=== PATIENT | female | born 2000 | race American Indian/Alaskan Native ===

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

== ENCOUNTER 2020-08-16 09:28 | Emergency (ER) | payer MEDICAID ==
[2020-08-16 10:35] VITALS: BP 118/71
--- NOTE | 2020-08-16 10:40 | Emergency Department Report ---
Upper Extremity - HPI Chief Complaint: Extremity Problem,Nontraumatic Stated Complaint: BROKEN LEFT THUMB NAIL Time Seen by Provider: 08/16/20 10:35 Upper Extremity: Left Thumb Occurred When: 1 Day (last night around 9pm) Mechanism: Other (Patient states that she and her sister were playing last night and and her sister accidentally struck the nail of her left thumb and caused the nail to lift) Severity: moderate, severe Symptoms: Yes Laceration or Abrasion, No Pain with Movement, No Deformity, No Limited Range of Movement, No Numbness, No Weakness, No Swelling, No Bruising/Ecchymosis Other History: Patient states that last night around 9 PM she was playing around with her sister when her sister accidentally struck the nail of her left thumb and close the nail to left. She currently has an acrylic nail extension on that left thumb. She states that it has been bleeding since last night but she has been able to keep it under control by applying a dressing but she states that she was concerned because she thought that she had to come get the entire nail removed because she had similar symptoms once before with a different nail. She reports no other symptoms at this time. ED Review of Systems ROS: Stated complaint: BROKEN LEFT THUMB NAIL Other details as noted in HPI Comment: All other systems reviewed and negative Musculoskeletal: other (Left thumb pain/left nail injury) Skin: other (Laceration) ED Past Medical Hx - Past Medical History Previous Medical History?: No - Surgical History Past Surgical History?: No - Social History Smoking Status: Never Smoker Substance Use Type: None - Medications Home Medications: Home Medications Medication Instructions Recorded Confirmed Last Taken Type Neomycin/Bacitracin/Polymyxinb 14.2 gm TP BID #1 tube 09/10/16 Unknown Rx [Neosporin Antibiotic Ointment] traMADoL [Ultram 50 MG tab] 50 mg PO Q8HR PRN #15 tablet 09/10/16 Unknown Rx Ibuprofen [Motrin 600 MG tab] 600 mg PO Q8H PRN #30 tablet 08/16/20 Unknown Rx Upper Extremity Exam - Exam General: Vital signs noted. No distress. Alert and acting appropriately. Head and Torso: No HEENT Abnormality, No Chest/Lungs Abnormality Shoulder Exam: Yes Normal Range of Motion in Shoulder Elbow: Yes Normal Range of Motion in Elbow Wrist: Yes Normal ROM in Wrist Hand: Yes Digit Tenderness (Distal left thumb but mainly over the nail) CMS Exam: Yes Broken Skin (There is a small nail avulsion at very distal aspect of nail where the free nail edge meets the hyponychium. No active bleeding at this time. Remainder of the nail exam showed no additional nail avulsion or any obvious subungual hematoma), Yes Normal Distal Pulses, Yes Normal Capillary Refill, Yes Normal Distal Sensation ED Course Vital Signs 08/16/20 10:34 Temperature 98.3 F Pulse Rate 84 Respiratory 14 Rate Blood Pressure 118/71 O2 Sat by Pulse 98 Oximetry ED Medical Decision Making - Medical Decision Making She has a small nail avulsion mainly where the free nail edge meets the hyponychium. Remainder of the nail appears to be intact. No obvious subungual hematoma. No active bleeding at this time. She does have tenderness but is mainly around the area of the nail avulsion. Did offer to do an x-ray of the finger but she refused. Recommend to patient that she try to remove the acrylic that is currently on top of her natural nail, but if she is unable to due to discomfort and pain recommend that she keeps it wrapped until it heals up and then she can remove the acrylic. Also recommend that she keeps it clean at all times to prevent any infection. Patient expressed understanding of instructions and agree with plan. Patient stable at time of discharge. Critical care attestation.: If time is entered above; I have spent that time in minutes in the direct care of this critically ill patient, excluding procedure time. ED Disposition Clinical Impression: Nail avulsion, finger, Finger nail contusion Disposition: DC-01 TO HOME OR SELFCARE Is pt being admited?: No Does the pt Need Aspirin: No Condition: Stable Instructions: Nail Avulsion, Contusion Additional Instructions: Recommend that you try to remove the acrylic using nail austrian remover acetone but if you are unable to due to discomfort/pain, I recommend that you just keep the nail clean and keep it wrapped. Keep it clean and keep it wrapped daily until the small nail avulsion heals and then you can remove the acrylic. You can take ibuprofen as needed for pain. Follow-up with your primary care doctor. Return to the ER if your symptoms changes or worsens in any way. Prescriptions: Ibuprofen [Motrin 600 MG tab] 600 mg PO Q8H PRN #30 tablet PRN Reason: Pain Referrals: KAREN HOLDER MD [Staff Physician] - 3-5 Days Time of Disposition: 10:59
== END 2020-08-16 11:27 | disposition home or self-care (01) ==
LOC: ED 09:28
DX: S60.012A Contusion of left thumb without damage to nail, initial encounter (principal); S61.102A Unspecified open wound of left thumb with damage to nail, initial encounter; Z79.899 Other long term (current) drug therapy; W22.8XXA Striking against or struck by other objects, initial encounter; Y93.89 Activity, other specified; Y92.89 Other specified places as the place of occurrence of the external cause; Y99.8 Other external cause status
CPT/HCPCS: 99282

== ENCOUNTER 2020-08-26 15:55 | Emergency (ER) | payer MEDICAID ==
--- NOTE | 2020-08-26 20:07 | Emergency Department Report ---
Upper Extremity - HPI Chief Complaint: Extremity Problem,Nontraumatic Stated Complaint: BROKEN NAIL Time Seen by Provider: 08/26/20 20:00 Upper Extremity: Left Thumb (left nail injury ) Occurred When: Today Mechanism: Hit with Object Severity: moderate Symptoms: No Pain with Movement, No Deformity, No Limited Range of Movement, No Numbness, No Weakness, No Swelling, No Bruising/Ecchymosis, No Laceration or Abrasion Other History: Pt presented to ED with complaints of nail injury to left thumb. Pt states she accidentally struck her finger today and her entire nail is now coming off. Pt was actually here on 08/16 for injury to that same nail. She had small partial avulsion at the time. She states she was keeping it wrapped and it was doing better and the nail was also healing up until she struck it today. ED Review of Systems ROS: Stated complaint: BROKEN NAIL Other details as noted in HPI Comment: All other systems reviewed and negative Constitutional: denies: chills, fever ENT: denies: ear pain, throat pain, dental pain, hearing loss, epistaxis Respiratory: denies: cough, orthopnea, shortness of breath, SOB with exertion, SOB at rest, wheezing Cardiovascular: denies: chest pain, palpitations, dyspnea on exertion, edema, syncope, paroxysmal nocturnal dyspnea Gastrointestinal: denies: abdominal pain, nausea, diarrhea, constipation, hematemesis, melena, hematochezia Genitourinary: denies: urgency, dysuria, discharge Musculoskeletal: denies: back pain, joint swelling, arthralgia Skin: change in hair/nails Neurological: denies: headache, weakness, paresthesias Psychiatric: denies: anxiety, depression, auditory hallucinations, visual hallucinations, homicidal thoughts, suicidal thoughts Hematological/Lymphatic: denies: easy bleeding, easy bruising, swollen glands ED Past Medical Hx - Past Medical History Previous Medical History?: No - Surgical History Past Surgical History?: No - Social History Smoking Status: Never Smoker Substance Use Type: None - Medications Home Medications: Home Medications Medication Instructions Recorded Confirmed Last Taken Type Neomycin/Bacitracin/Polymyxinb 14.2 gm TP BID #1 tube 09/10/16 Unknown Rx [Neosporin Antibiotic Ointment] traMADoL [Ultram 50 MG tab] 50 mg PO Q8HR PRN #15 tablet 07/16/17 Unknown Rx Ibuprofen [Motrin 600 MG tab] 600 mg PO Q8H PRN #30 tablet 08/16/20 Unknown Rx Upper Extremity Exam - Exam General: Vital signs noted. No distress. Alert and acting appropriately. Head and Torso: No HEENT Abnormality, No Chest/Lungs Abnormality Wrist: Yes Normal ROM in Wrist, No Wrist Tenderness, No Wrist Deformity, No Snuffbox Tenderness, No Pain with Axial Thumb Compression Hand: Yes Digit Tenderness (ttp mainly over the nail/nail bed of left thumb. Nail avulsion noted to left thumb. There is no injury to nail bed. No laceration noted. No bleeding noted. ), No Hand Tenderness, No Hand Deformity, No Normal ROM in Digit(s), No Digit(s) Deformity, No Tendon Dysfunction CMS Exam: Yes Broken Skin, No Normal Distal Pulses, No Normal Capillary Refill, No Normal Distal Sensation ED Course Vital Signs 08/26/20 17:59 Temperature 98.5 F Pulse Rate 83 Respiratory 18 Rate Blood Pressure 122/70 [Right] O2 Sat by Pulse 99 Oximetry Critical care attestation.: If time is entered above; I have spent that time in minutes in the direct care of this critically ill patient, excluding procedure time. ED Disposition Clinical Impression: Nail avulsion, finger Disposition: DC-01 TO HOME OR SELFCARE Is pt being admited?: No Does the pt Need Aspirin: No Condition: Stable Instructions: Nail Avulsion Additional Instructions: Keep nail bed clean daily with soap and water. Dry well the apply thin layer of neosporin to area. You can do this for about 1 week. You nail may or may not grow back. I recommend motrin or tylenol of pain. I recommend following up with local hand specialist in 1 week. Return to ED if worse. Referrals: KAREN HOLDER MD [Staff Physician] - 7-10 days Time of Disposition: 20:30
[2020-08-26] MEDS ORDERED: LIDOCAINE 1%/EPINEPHRINE 1:100,000 VIAL (20 ML) INFILTRATI NR (20:15)
[2020-08-26] MEDS ORDERED: NEOMY 3.5 MG/BACIT 400 UNITS/POLY B 5000 UNITS/GM OINT PACKET TP ONE (20:58)
[2020-08-26 22:21] VITALS: BP 122/77
== END 2020-08-26 21:05 | disposition home or self-care (01) ==
LOC: ED 15:55
DX: S61.102A Unspecified open wound of left thumb with damage to nail, initial encounter (principal); Z79.1 Long term (current) use of non-steroidal anti-inflammatories (NSAID); Z79.899 Other long term (current) drug therapy; W22.8XXA Striking against or struck by other objects, initial encounter; Y93.89 Activity, other specified; Y92.89 Other specified places as the place of occurrence of the external cause; Y99.8 Other external cause status
CPT/HCPCS: 99282; A6250

== ENCOUNTER 2021-08-07 10:48 | Emergency (ER) | payer MEDICAID ==
[2021-08-07] MEDS ORDERED: LIDOCAINE VISCOUS 2% 15 ML ORAL LIQD PO ONE (11:45)
[2021-08-07] MEDS ORDERED: IBUPROFEN 600 MG TAB PO ONE (11:45)
[2021-08-07] MEDS ORDERED: dexAMETHasone 20 MG/5 ML VIAL IV ONE (13:19)
[2021-08-07 14:09] LABS: Basophils # (Auto) 0.1 K/mm3 (0.0-0.1); Basophils % (Auto) 1.2 % (0.0-1.8); Eosinophils % (Auto) 0.9 % (0.0-4.3); Hematocrit 37.3 % (30.3-42.9); Hemoglobin 12.8 gm/dl (10.1-14.3); Lymphocytes # (Auto) 1.8 K/mm3 (1.2-5.4); Lymphocytes % (Auto) 31.3 % (13.4-35.0); Mean Corpuscular HGB Conc 34 % (30-34); Mean Corpuscular Volume 90 fl (79-97); Monocytes # (Auto) 0.7 K/mm3 (0.0-0.8); Monocytes % (Auto) 11.7 % (0.0-7.3); Platelet Count 304 K/mm3 (140-440); Red Blood Count 4.13 M/mm3 (3.65-5.03); Red Cell Distribution Width 13.8 % (13.2-15.2)
[2021-08-07 14:46] LABS: Alanine Aminotransferase 14 units/L (7-56); Albumin 3.7 g/dL (3.9-5); BUN/Creatinine Ratio 10; Blood Urea Nitrogen 8 mg/dL (7-17); Hemolysis Index 4
--- NOTE | 2021-08-07 14:47 | Emergency Department Report ---
ED General Adult HPI - General Chief complaint: Sore Throat Stated complaint: SORETHROAT/SEEN 2 DAYS AGO AT URGENT CARE Time Seen by Provider: 08/07/21 13:16 Source: patient Mode of arrival: Ambulatory Limitations: No Limitations - History of Present Illness Initial comments: Patient is a 21-year-old female who presents for sore throat fever chills malai se x3 days. Patient states pain with swallowing at 6/10 described as on fire. Symptoms are relieved temporarily by hot liquids including hot tea. Symptoms are exacerbated by swallowing patient reports T-max of 103 at home on yesterday temp was 100.6 in triage today. Patient denies dizziness lightheadedness no nausea or vomiting. Patient has no history of asthma,sinusitis, or recuring tonsillitis. Severity scale (0 -10): 10 - Related Data Previous Rx's Medication Instructions Recorded Last Taken Type Neomycin/Bacitracin/Polymyxinb 14.2 gm TP BID #1 tube 09/10/16 Unknown Rx [Neosporin Antibiotic Ointment] traMADoL [Ultram 50 MG tab] 50 mg PO Q8HR PRN #15 tablet 09/10/16 Unknown Rx Ibuprofen [Motrin 600 MG tab] 600 mg PO Q8H PRN #30 tablet 08/16/20 Unknown Rx Clindamycin [Clindamycin CAP] 300 mg PO Q6H 7 Days #28 cap 08/07/21 Unknown Rx Ibuprofen [Motrin 800 MG tab] 800 mg PO Q8HR PRN #30 tablet 08/07/21 Unknown Rx dexAMETHasone [Decadron] 4 mg PO BID 5 Days #10 tablet 08/07/21 Unknown Rx Allergies Allergy/AdvReac Type Severity Reaction Status Date / Time No Known Allergies Allergy Verified 08/07/21 14:13 ED Review of Systems ROS: Stated complaint: SORETHROAT/SEEN 2 DAYS AGO AT URGENT CARE Other details as noted in HPI Constitutional: denies: chills, fever Eyes: denies: eye pain, eye discharge, vision change ENT: throat pain, congestion. denies: ear pain Respiratory: cough. denies: shortness of breath, wheezing Cardiovascular: denies: chest pain, palpitations Endocrine: no symptoms reported Gastrointestinal: denies: abdominal pain, nausea, diarrhea Genitourinary: denies: urgency, dysuria, discharge Musculoskeletal: denies: back pain, joint swelling, arthralgia Skin: denies: rash, lesions Neurological: denies: headache, weakness, paresthesias, vertigo Psychiatric: denies: anxiety, depression Hematological/Lymphatic: denies: easy bleeding, easy bruising ED Past Medical Hx - Past Medical History Previous Medical History?: No - Surgical History Past Surgical History?: No - Social History Smoking Status: Never Smoker - Medications Home Medications: Home Medications Medication Instructions Recorded Confirmed Last Taken Type Neomycin/Bacitracin/Polymyxinb 14.2 gm TP BID #1 tube 09/10/16 Unknown Rx [Neosporin Antibiotic Ointment] traMADoL [Ultram 50 MG tab] 50 mg PO Q8HR PRN #15 tablet 09/10/16 Unknown Rx Ibuprofen [Motrin 600 MG tab] 600 mg PO Q8H PRN #30 tablet 08/16/20 Unknown Rx Clindamycin [Clindamycin CAP] 300 mg PO Q6H 7 Days #28 cap 08/07/21 Unknown Rx Ibuprofen [Motrin 800 MG tab] 800 mg PO Q8HR PRN #30 tablet 08/07/21 Unknown Rx dexAMETHasone [Decadron] 4 mg PO BID 5 Days #10 tablet 08/07/21 Unknown Rx ED Physical Exam - General Limitations: No Limitations General appearance: alert, in no apparent distress - Head Head exam: Present: normocephalic, normal inspection - Eye Eye exam: Present: EOMI. Absent: conjunctival injection, nystagmus Pupils: Present: normal accommodation - ENT ENT exam: Present: mucous membranes moist, TM's normal bilaterally, normal external ear exam - Expanded ENT Exam Expanded Throat exam: Positive: tonsillar erythema, tonsillomegaly, tonsillar exudate, other. Negative: R peritonsillar mass, L peritonsillar mass (Moderate swelling airway is patent no stridor) - Neck Neck exam: Present: tenderness, full ROM (Anterior auricle lymph), lymphadenopathy. Absent: meningismus, thyromegaly - Respiratory Respiratory exam: Present: normal lung sounds bilaterally. Absent: respiratory distress, wheezes, stridor, chest wall tenderness - Cardiovascular Cardiovascular Exam: Present: regular rate, normal rhythm, normal heart sounds. Absent: systolic murmur, diastolic murmur, rubs, gallop - GI/Abdominal GI/Abdominal exam: Present: soft, normal bowel sounds. Absent: distended, tenderness, bruit, hernia - Rectal Rectal exam: Present: deferred - Extremities Exam Extremities exam: Present: normal inspection, full ROM, normal capillary refill - Back Exam Back exam: Present: normal inspection, full ROM. Absent: CVA tenderness (R), CVA tenderness (L) - Neurological Exam Neurological exam: Present: alert, CN II-XII intact, normal gait - Psychiatric Psychiatric exam: Present: normal affect, normal mood - Skin Skin exam: Present: warm, dry, intact, normal color. Absent: rash ED Course Vital Signs 08/07/21 10:59 Temperature 100.6 F H Pulse Rate 97 H Respiratory 20 Rate Blood Pressure 123/69 [Right] O2 Sat by Pulse 99 Oximetry ED Medical Decision Making - Lab Data Result diagrams: 08/07/21 13:30 08/07/21 13:30 Labs 08/07/21 08/07/21 08/07/21 13:30 13:30 13:30 WBC 5.6 RBC 4.13 Hgb 12.8 Hct 37.3 MCV 90 MCH 31 MCHC 34 RDW 13.8 Plt Count 304 Lymph % (Auto) 31.3 [place] % (Auto) 11.7 H Eos % (Auto) 0.9 Baso % (Auto) 1.2 Lymph # (Auto) 1.8 [place] # (Auto) 0.7 Eos # (Auto) 0.0 Baso # (Auto) 0.1 Seg Neutrophils % 54.9 Seg Neutrophils # 3.1 Sodium 141 Potassium 3.8 Chloride 104.4 Carbon Dioxide 24 Anion Gap 16 BUN 8 Creatinine 0.8 Estimated GFR > 60 BUN/Creatinine Ratio 10 Glucose 88 Calcium 9.0 Total Bilirubin 0.80 AST 14 ALT 14 Alkaline Phosphatase 96 Total Protein 7.3 Albumin 3.7 L Albumin/Globulin Ratio 1.0 HCG, Quant < 2 - Radiology Data Radiology results: report reviewed, image reviewed CT NECK WITH CONTRAST HISTORY: Right-sided neck swelling; pain when swallowing; Peritonsillar abscess COMPARISON: None. TECHNIQUE: Routine CT of the neck is performed following intravenous contrast. All CT scans at this location are performed using CT dose reduction for ALARA by means of automated exposure control CONTRAST: 100 mL Omnipaque 300 FINDINGS: Oral cavity: Swollen right tonsillar fossae area; approximately 8 mm sized lower attenuation area with air bubbles seen on the right side anteriorly; thin rim of enhancement; mild mass effect over the airway; airway is not compromised; inflammatory changes contained within the superficial constrictor muscle; parapharyngeal space, process safety management engineer space normal; retropharyngeal space normal; no extension into the larynx are mediastinotomy Reactive lymph nodes at level 2 Skull Base: No significant abnormality. Parotid, Carotid, Retropharyngeal, Prevertebral, Pharyngeal Mucosal, and Component Assembler Supervisor Spaces: No abnormal mass, enhancing lesion or other significant abnormality. Airway: Mildly displaced towards the left side in the oral cavity but not compromised Lymphatics: Reactive lymph nodes at level 2 and 1 Vasculature: No significant abnormality. Osseous Structures: No significant abnormality Additional findings: None. IMPRESSION: 8 mm sized low attenuation area with the air bubbles in the right tonsillar fossa; right tonsillar abscess; contained within the superior constrictor; air cells within the "abscess" suggest auto decompression Signer Name: Carlee Phoenix MD Signed: 08/07/2021 4:15 PM Workstation Name: [id number] Transcribed By: BS Dictated By: Carlee Wilkinson MD Electronically Authenticated By: Carlee Wilkinson MD Signed Date/Time: 08/07/21 1615 DD/ 1609 TD/TT: - Medical Decision Making CT soft tissue neck confirms mild tonsillar abscess not obstructing airway recommending auto decompression. Pain is improved with clindamycin given in ED. Plan DC with prescription for same, short burst steroids, NSAIDs as needed pain follow-up with ENT in 1 to 2 days. Patient given strict instructions to return to emergency department should symptoms worsen. Patient verbalized ag reement and understanding with discharge plan patient DC'd home in stable condition at this time. Current respirations are even unlabored there is no stridor no wheezing no nausea no vomiting patient is tolerating p.o. intake. Critical care attestation.: If time is entered above; I have spent that time in minutes in the direct care of this critically ill patient, excluding procedure time. ED Disposition Clinical Impression: Abscess of tonsil Disposition: HOME / SELF CARE / HOMELESS Is pt being admited?: No Does the pt Need Aspirin: No Condition: Stable Instructions: Peritonsillar Abscess, [id number] Additional Instructions: Take medications as prescribed, follow-up with your ENT doctor in 1 to 2 days. Return to emergency department should symptoms worsen or unable to tolerate intake by mouth. Prescriptions: Clindamycin [Clindamycin CAP] 300 mg PO Q6H 7 Days #28 cap dexAMETHasone [Decadron] 4 mg PO BID 5 Days #10 tablet Ibuprofen [Motrin 800 MG tab] 800 mg PO Q8HR PRN #30 tablet PRN Reason: Pain fever Referrals: JENNIFER UGARTE MD [Staff Physician] - DEBRA BLAS MD [Staff Physician] - 2-3 Days Forms: Work/School Release Form(ED) Time of Disposition: 16:39
--- NOTE | 2021-08-07 16:19 | Cat Scan Report ---
CT NECK WITH CONTRAST HISTORY: Right-sided neck swelling; pain when swallowing; Peritonsillar abscess COMPARISON: None. TECHNIQUE: Routine CT of the neck is performed following intravenous contrast. All CT scans at this [facility] are performed using CT dose reduction for ALARA by means of automated exposure control CONTRAST: 100 mL Omnipaque 300 FINDINGS: Oral cavity: Swollen right tonsillar fossae area; approximately 8 mm sized lower attenuation area wit h air bubbles seen on the right side anteriorly; thin rim of enhancement; mild mass effect over the a irway; airway is not compromised; inflammatory changes contained within the superficial constrictor m uscle; parapharyngeal space, securities trader space normal; retropharyngeal space normal; no extension into the larynx are mediastinotomy Reactive lymph nodes at level 2 Skull Base: No significant abnormality. Parotid, Carotid, Retropharyngeal, Prevertebral, Pharyngeal Mucosal, and Folding Rules Printing Machine Operator Spaces: No abnorm al mass, enhancing lesion or other significant abnormality. Airway: Mildly displaced towards the left side in the oral cavity but not compromised Lymphatics: Reactive lymph nodes at level 2 and 1 Vasculature: No significant abnormality. Osseous Structures: No significant abnormality Additional findings: None. IMPRESSION: 8 mm sized low attenuation area with the air bubbles in the right tonsillar fossa; right tonsillar ab scess; contained within the superior constrictor; air cells within the "abscess" suggest auto decompr ession Signer Name: Carlee Phoenix MD Signed: 08/07/2021 4:15 PM Workstation Name: [id number]
[2021-08-07] MEDS ORDERED: KETOROLAC 30 MG/1 ML INJ IV ONE (16:52)
[2021-08-07 17:02] VITALS: BP 126/78
== END 2021-08-07 18:57 | disposition home or self-care (01) ==
LOC: ED 10:48
DX: J36 Peritonsillar abscess (principal)
CPT/HCPCS: 36415; 70491; 80053; 84702; 85025; 96365; 96375; 99284; J1100; J7502; Q9967